=== PATIENT | male | born 1955 | race Caucasian/White ===

== ENCOUNTER 2025-07-15 09:37 | Outpatient (AMB) | payer OTHER, SELFPAY ==
--- OUTSIDE RECORDS SUMMARY | 2024-06-04 06:55 | XMS_ITS | Encounter Summary ---
Author Organization [facility] [place] [address] Care Team Providers Care Child Welfare Director Name Role Phone Anselmo Flower MD Primary Care Provider [phone] Encounter Details Date Type Department Care Team (Latest Contact Info) Description 06/04/2024 7:55 AM EDT Hospital Encounter TH HISTORIC ENCOUNTERS EASTERN CONVERSION ONLY Isabel Wynn MD [address] [place] [phone] Sacrococcygeal disorders, not elsewhere classified Social History Tobacco Use Types Packs/Day Years Used Date Smoking Tobacco: Never Smokeless Tobacco: Never Alcohol Use Standard Drinks/Week Comments Not Currently 0 (1 standard drink = 0.6 oz pur e alcohol) Interpersonal Safety Answer Date Record ed Physical Abuse Unrecognized value 05/30/2025 Verbal Abuse Unrecognized value 05/30/2025 Sex and Gender Information Value Date Recorded Sex Assigned at Male 09/21/2024 10:42 AM EST Legal Sex Male 9:43 PM EST Gender Identity Male 09/21/2024 10:42 AM EST Sexual Orientation Straight 09/21/2024 10 :42 AM EST documented as of this encounter Plan of Treatment Upcoming Encounters Date Type Department Care Team (Late st Contact Info) Description 07/25/2025 3:00 PM EST Office Visit [facility] Cardiology [facility] [address] [place] [phone] Dary Varner MD [address] [place] [address] [address] [place] [address] 08/01/2025 1:30 PM EST [facility] [place] [phone] Soham Sauceda PA [address] [place] [address] documented as of this encounter Procedures Procedure Name Priority Date/Time Associated Diagnosis Comments INJ ANES/STEROID SI JOINT LT Routine 06/04/2024 10:21 AM EDT Sacrococcygeal disorders, not elsewhere classified documented in this encounter Results * INJ ANES/STEROID SI JOINT LT (06/04/2024 10:21 AM EDT) Anatomical Region Laterality Modality Computed Tomogra phy 06/04/2024 8:35 AM EDT Narrative 06/04/2024 10:21 AM EDT [facility] Diagnostic Imaging Department [address] [place] [address] Patient: CHRIS SY /Age/Sex: 1955 - 68 - M Unit#: [id number] Location/Status: SPDIANGIO/REG CLI Mnemonic/Ordering Site: INJSIJTLT/SPIR Ordering Physician: ISABEL WYNN MD Inj Anes/Steroid SI Joint LT - 06/04/24 - 0956 Report Status:Signed INDICATION: Left buttock and thigh pain PROCEDURE: Left CT-guided SI joint injection under conscious sedation prior relevant studies: Outside CT scan of the abdomen and pelvis from November 15, 2023 MEDICATIONS: Local anesthesia: 5 cc of 1% buffered lidocaine administered subcutaneously. Sedation: None Other: 80 mg of Depot Medrol mixed with 2 mL of bupivacaine Scanner: [employer] speed 16 slice VCT Dose reduction technique: ASIR (Adaptive statistical iterative reconstruction) and/or AEC (automated exposure control) Dose: total exam DLP 2-3 mGY per cm TECHNIQUE: Informed consent obtained. Patient placed prone on the CAT scan table and multiple axial images obtained of the pelvis for localization. After localization the site was draped and prepped sterilely. Timeout performed followed by administration of local anesthetic. Under CT fluoroscopic guidance a 22-gauge needle was advanced into the posterior aspect of the inferior left SI joint. FINDINGS: Initial axial images obtained for localization. CT fluoroscopic images confirm needle positioning within the posterior aspect of the localized joint. IMPRESSION: Left-sided CT-guided SI joint injection. Dictating Physician: REBECCA ANAYA MD Electronically Signed by: REBECCA ANAYA MD Dic Date/Time: 06/04/24 1005 Sign date/Time: 06/04/24 1021 Procedure Note Rebecca Anaya MD - 06/12/2024 [facility] Diagnostic Imaging Department [address] [place] [address] Patient: KERRIECHRIS /Age/Sex: 1955 - 68 - M Unit#: [id number] Location/Status: RAQUELIANGIO/REG CLI Mnemonic/Ordering Site: [facility] Ordering Physician: ISABEL WYNN MD Inj Anes/Steroid SI Joint LT - 06/04/24 - 56 Report Status:Signed INDICATION: Left buttock and thigh pain PROCEDURE: Left CT-guided SI joint injection under conscious sedation prior relevant studies: [facility] MEDICATIONS: Local anesthesia: 5 cc of 1% buffered lidocaine administeredsubcutaneously. Sedation: None Other: 80 mg of Depot Medrol mixed with 2 mL of bupivacaine Scanner: [employer] speed 16 slice VCT Dose reduction technique: ASIR (Adaptive statistical iterativereconstruction) and/or AEC (automated exposure control) Dose: total exam DLP 2-3 mGY per cm TECHNIQUE: Informed consent obtained. Patient placed prone on the CATscan table and multiple axial images obtained of the pelvis for localization.After localization the site was draped and prepped sterilely. Timeoutperformed followed by administration of local anesthetic. Under CT fluoroscopicguidance a 22-gauge needle was advanced into the posterior aspect of the inferiorleft SI joint. FINDINGS: Initial axial images obtained for localization. CTfluoroscopic images confirm needle positioning within the posterior aspect of thelocalized joint. IMPRESSION: Left-sided CT-guided SI joint injection. Dictating Physician: REBECCA ANAYA MD Electronically Signed by: REBECCA ANAYA MD Dic Date/Time: 06/04/24 1005 Sign date/Time: 06/04/24 1021 Isabel Wynn MD IMG CT PROCEDURES Final Result documented in this encounter Visit Diagnoses Diagnosis Sacrococcygeal disorders, not elsewhere classified documented in this encounter Additional Health Concerns Infection Onset Date Last Indicated Resolved Time Respiratory Rule-Out 10/10/2024 10/10/2024 025 12:39 PM EST COVID-19 Rule-Out 10/10/2024 10/10/2024 10/10/2024 12:39 PM EST Coronavirus 10/10/2024 10/10/2024 documented as of this encounter Care Teams Child Welfare Director Relationship Specialty Start Date End Date Anselmo Flower MD PCP - General Internal Medicine 12/22/21 02/04/25 documented as of this encounter
--- NOTE | 2025-07-15 09:43 | A.PHYSOV ---
Vital Signs 07/15/25 09:45 Height 6 ft Weight 186 lb BMI 25.2 Intake Visit Reasons: Left shoulder injection Intake Note: Patient is a 62 year old female here for follow up Bilateral L4-L5, L5-S1 facet injections on 05/24/2025. Patient would like to have bilateral knee injections. Patient concerned with left hip pain. Airset Caster Required: No Allergies No Known Allergies Allergy (Verified 07/15/25 09:48) HPI Comments Details: Mr. Rod is a 70-year-old male seen in evaluation today for chief complaint of neck and left shoulder pain as well as left hip pain. Patient reports 7/10 pain to the left side neck. He has undergone left subacromial injection with good relief of his symptoms. Today he is requesting repeat injection. Patient also reports increasing pain without trauma. He completed a 6 week physician directed home exercise plan without relief of his symptoms. Patient is requesting MRI of the left shoulder. Patient is experiencing progressive weakness. Patient is also experiencing 7/10 left hip pain. He finds it difficult to cross his legs. He does have limited range of motion and external rotation. He is requesting imaging and intra-articular injection of his left hip. Procedure: Left subacromial injection 07/15/2025 Trigger point injection left upper trapezius 07/15/2025 [facility] Surgical History (Updated 07/15/25 @ 09:49 by Roopa Huang MA) History of lung surgery H/O shoulder surgery H/O: knee surgery History of carpal tunnel surgery Social History Alcohol intake: current Alcohol intake frequency: does not drink Patient Tobacco Use Status: Never used Tobacco Use of substances other than those prescribed or required for medical reasons: No Review of Systems Narrative Neck pain, left shoulder pain, left hip pain. No incontinence, saddle anesthesia urinary retention. Physical Exam Exam Exam: Cervical Spine: He is tender to left upper trapezius to palpation. He has limited range of motion of his cervical spine at end range throughout. Special Tests: Axial Compression test: Negative Spurlings test: Negative Lhermitte's sign is Negative Upper Extremities: He is tender to the lateral deltoid of the left shoulder. He has full range of motion of the shoulder in all planes with pain. He does have pain with Neer testing. He also has equivocal empty can test. Full range of motion of his elbow wrist and hand. Equal academic guidance specialist strength bilaterally. Neuro: Sensation: Intact to upper extremities bilateral to light touch Strength C5 (Elbow Flexion): 5/5 on the left and 5/5 on the right. C6 (Elbow Ext): 5/5 on the left and 5/5 on the right. C7 (Elbow Ext): 5/5 on the left and 5/5 on the right. C8 (Finger Flex): 5/5 on the left and 5/5 on the right. T1 (Finger Abd/Add): 5/5 on the left and 5/5 on the right. DTR: C5 (Biceps): Left 2 Right 2 C6 (Brachioradialis): Left 2 Right 2 C7 (Triceps): Left 2 Right 2 Aguillon sign: Negative No pathologic clonus. No involuntary movement. Examination of his left hip, he is limited in external rotation and abduction with pain. Full range of motion otherwise bilateral lower extremities. No calf pain or edema. He is otherwise neurovascularly intact. Vital Signs: BMI result Body Mass Index 25.2 Office Procedures AMB Shoulder Injection AMB Shoulder Injection Procedure Details: Left Subacromial injection Procedure: The patient was educated about risks, complications and benefits including but not limited to increased serum glucose, infection, nerve damage, bleeding, tendon/ligament damage and pain. We agree with a subacromial injection is the next best step in the treatment plan. Verbal consent was obtained. Using aseptic technique, the skin was cleansed with Betadine. Ethyl chloride was used to desensitize the skin. Using a posterior approach, 40 mg of Kenalog and 3 mL 2% lidocaine were injected using a 25-gauge inch and a half needle into the subacromial space. The patient tolerated the procedure well without immediate complication. Postinjection instructions were given. Shoulder Injection - : Left All charges added?: Procedure code (CPT) selection complete AMB Trigger Point Inject - Phy Therapeutic Injection Details: Trigger point injection left upper trapezius : Patient was educated about the risks, complications and benefits of trigger point injection. Risks and complications include infection, nerve damage, bleeding, collapsed lung. After discussing these risks complications and benefits the patient is eager to proceed. The patient's left upper trapezius muscle spasm was marked cleansed with an alcohol prep. 1 mL of 1% lidocaine was injected into the trigger point with needling. Patient tolerated the procedure well without immediate complication. 83625-Tawijkn Point Injection 1 or 2 sites All charges added?: Procedure code (CPT) selection complete Office Meds Kenalog 40 mg/mL suspension for injection Performing Provider: ZAK Chavez [facility] Administered by: ZAK Chavez on 07/15/25 16:31 Dose Route Admin Location Dispensed Lot Number Expiration Date [facility] [employer] 40 mg intra-articular 1 mL [address]-8 [employer] Total Dispensed Waste 1 mL 0 % lidocaine (PF) 20 mg/mL (2 %) injection solution Performing Provider: ZAK Chavez Performing Location: [facility] Administered by: ZAK Chavez on 07/15/25 16:31 Dose Route Admin Location Dispensed Lot Number Expiration Date [facility] [employer] Officer 60 mg intra-articular 50 mL [id number] Total Dispensed Waste 50 mL 0 % lidocaine (PF) 20 mg/mL (2 %) injection solution Performing Provider: ZAK Chavez Performing Location: [facility] Administered by: ZAK Chavez on 07/15/25 16:31 Dose Route Admin Location Dispensed Lot Number Expiration Date [facility] [employer] 10 mg IM 50 mL [id number] Total Dispensed Waste 50 mL 0 % Assessment & Plan Assessment & Plan (1) Osteoarthritis of left hip: Code(s): M16.12 - Unilateral primary osteoarthritis, left hip Category: Medical Qualifiers: Osteoarthritis type: primary Qualified Code(s): M16.12 - Unilateral primary osteoarthritis, left hip (2) Myalgia: Code(s): M79.10 - Myalgia, unspecified site Category: Medical (3) Rotator cuff tear: Code(s): M75.100 - Unspecified rotator cuff tear or rupture of unspecified shoulder, not specified as traumatic Category: Medical Qualifiers: Rotator cuff tear extent: complete Rotator cuff tear trauma status: nontraumatic Laterality: left Qualified Code(s): M75.122 - Complete rotator cuff tear or rupture of left shoulder, not specified as traumatic (4) Cervicalgia: Code(s): M54.2 - Cervicalgia Category: Medical Plan Mr. Rod is a 70-year-old male seen in evaluation today for chronic left-sided neck and shoulder pain. Patient reports worsening symptoms including weakness involved with his left shoulder as well as pain. Patient has failed conservative treatment. I recommend arthrogram of the left shoulder to rule out rotator cuff tear as well as labral tear. As we are considering surgery. Follow-up post arthrogram. Today consented to subacromial injection. He is given post-injection instructions, recommend: Moist heat compresses for 15 minutes 5 times daily. He should avoid repetitive overhead activities. Patient is experiencing left hip osteoarthritis. I recommend x-ray of the left hip today as well as intra-articular injection. We will obtain prior authorization for his injection contact him once we have done so. Today also consented to trigger point injection left upper trapezius. We discussed the benefits of proper nutrition and exercise to maintain a healthy body weight to improve longevity and function. We also discussed the benefits of proper lifting techniques, core strengthening and proper posture. Thank you for allowing me to participate in the care of your patient. Orders: Orders XR hip LT min 2V Today M16.10 - Unilateral primary osteoarthritis, unspecified hip AMB Shoulder Injection Today M16.12 - Unilateral primary osteoarthritis, left hip AMB Trigger Point Injection - Physiatry Today M79.10 - Myalgia, unspecified site FL arthrogram shoulder LT Today M75.122 - Complete rotator cuff tear or rupture of left shoulder, not specified as traumatic Coding Level of Care Code Tele Est Pt Level 4 (58440) Diagnoses Primary osteoarthritis of left hip M16.12 Osteoarthritis type: primary Myalgia M79.10 Nontraumatic complete tear of left rotator cuff M75.122 Rotator cuff tear extent: complete Rotator cuff tear trauma status: nontraumatic Laterality: left Cervicalgia M54.2 CPT Codes AMB Shoulder Injection - Hip/Bursa Injection - : Left ([id number]) Therapeutic Injection - Ther Injection 1: 16506-Myrixop Point Injection 1 or 2 sites ([id number])
[2025-07-15 09:45] VITALS: BMI 25.2
--- OUTSIDE RECORDS SUMMARY | 2025-07-15 10:49 | XMS_ITS | Encounter Summary ---
Author Organization [facility] [place] [address] Care Team Providers Care Health Systems Analyst Name Role Phone Carin Flannery NP Primary Care Provider [phone] Encounter Details Date Type Department Care Team (Latest Contact Info) Description 07/15/2025 10:49 AM EST Hospital Encounter [facility] - [facility] [address] [place] [phone] Unilateral primary osteoarthritis, unspecified hip Social History Tobacco Use Types Packs/Day Years [...] Description 07/25/2025 3:00 PM EST Office Visit [facility] [address] [place] [phone] Dary Varner MD [facility] [address] [place] [phone] 08/01/2025 1:30 PM EST Office Visit [facility] - [facility] [address] [facility] [place] [phone] Soham Sauceda PA [address] [facility] [place] [address] Pending Results Name Type Priority Associated Diagnoses Date /Time XR Hip 2-3 Views Left Imaging Routine Unilateral primary osteoarthritis, unspecified hip 07/15/2025 11:12 AM EST Scheduled Orders Name Type Priority Associated Diagnoses Orde r Schedule XR Hip 2-3 Views Left Imaging Routine Unilateral primary osteoarthritis, unspecified hip Once for 1 Occurrences starting 07/15/2025 until 07/15/2025 documented as of this encounter Goals Goal Patient Goal Type Associated Problems Recent Progress Patient-Stated? Author Autogenerat ed Goal Care Plan Autogenerated Problem No Jorden Choi documented as of this encounter Visit Diagnoses Diagnosis Unilateral primary osteoarthritis, unspecified hip documented in this encounter Additional Health Concerns Active Problems Noted Date Diagnosed Date Autogenerated Problem 05/13/2025 Infection Onset Date Last Indicated Resolved Time Coronavirus 10/10/2024 10/10/2024 documented as of this encounter Care Teams Health Systems Analyst Relationship Specialty Start Date End Date Carin Flannery NP [address] [facility] [place] [address] PCP - General Primary Care 05/27/25 documented as of this encounter
--- OUTSIDE RECORDS SUMMARY | 2025-07-15 11:24 | XMS_ITS | Encounter Summary ---
Author Organization [facility] Address [address] [place] [address] Care Team Providers Care Pipe Smoking Machine Operator Name Role Phone Prudencio Carin MCGRAW Primary Care Provider [phone] Encounter Details Date Type Department Care Team (Late Contact Info) Description 03/19/2025 Lab Requisition [facility] - Main Lab [address] [facility] [place] [address] Andrew Cohen MD [address] [facility] [address] [place] [phone] Malignant neoplasm of prostate ([facility]/HCC V24, CMS/HCC V28) Social History Tobacco Use Types Packs/Day Years Used Date Smoking Tobacco: Never Smokeless Tobacco: Never Alcohol Use Standard Drinks/Week Comments Not Currently 0 (1 standard drink = 0.6 oz pur e alcohol) Sex and Gender Information Value Date Recorded Sex Assigned at Male 09/21/2024 10:42 AM EST Legal Sex Male 9:43 PM EST Gender Identity Male 09/21/2024 10:42 AM EST Sexual Orientation Straight 09/21/2024 10 :42 AM EST documented as of this encounter Plan of Treatment Upcoming Encounters Date Type Department Care Team (Late Contact Info) Description 07/25/2025 3:00 PM EST Office Visit [facility] [address] [place] [phone] Dary Varner MD [address] [place] [address] [address] [place] [phone] 08/01/2025 1:30 PM EST [facility] [address] [place], [place] [phone] Soham Sauceda PA [address] [place] [address] documented as of this encounter Procedures Procedure Name Priority Date/Time Associated Diagnosis Comments TISSUE EXAM Routine 03/18/2025 Malignant neoplasm of prostate ([facility]/HCC V24, CMS/HCC V28) documented in this encounter Results * Tissue Exam (03/18/2025) Final Diagnosis A. Prostate, Left [place] (Core Biopsy): - BENIGN PROSTATE TISSUE. B. Prostate, Left Lateral [place] (Core Biopsy): - BENIGN PROSTATE TISSUE. C. Prostate, Left Middle Middle (Core Biopsy): -PROSTATIC ACINAR ADENOCARCINOMA, CONVENTIONAL (USUAL) TYPE -Antonella score (3+3)=6, Grade group 1 Total Number of Cores: 1 Number of Positive Cores: 1 Percentage of Prostatic Tissue Continuously Involved by Tumor: 10% D. Prostate, Left Lateral Middle (Core Biopsy): -PROSTATIC ACINAR ADENOCARCINOMA, CONVENTIONAL (USUAL) TYPE -[place] score (3+3)=6, Grade group 1 Total Number of Cores: 1 Number of Positive Cores: 1 Percentage of Prostatic Tissue Continuously Involved by Tumor: 5% E. Prostate, Left Middle Base (Core Biopsy): -PROSTATIC ACINAR ADENOCARCINOMA, CONVENTIONAL (USUAL) TYPE -[place] score (3+3)=6, Grade group 1 Total Number of Cores: 1 Number of Positive Cores: 1 Percentage of Prostatic Tissue Continuously Involved by Tumor: 40% F. Prostate, Left Lateral Base (Core Biopsy): -PROSTATIC ACINAR ADENOCARCINOMA, CONVENTIONAL (USUAL) TYPE -Antonella score (3+3)=6, Grade group 1 Total Number of Cores: 2 Number of Positive Cores: 2 Percentage of Prostatic Tissue Continuously Involved by Tumor: <5, 5% G. Prostate, Right [place] (Core Biopsy): -PROSTATIC ACINAR ADENOCARCINOMA, CONVENTIONAL (USUAL) TYPE -[place] score (3+3)=6, Grade group 1 Total Number of Cores: 1 Number of Positive Cores: 1 Percentage of Prostatic Tissue Continuously Involved by Tumor: 10% H. Prostate, Right Lateral [place] (Core Biopsy): - BENIGN PROSTATE TISSUE. I. Prostate, Right Middle Middle (Core Biopsy): -PROSTATIC ACINAR ADENOCARCINOMA, CONVENTIONAL (USUAL) TYPE -Antonella score (3+3)=6, Grade group 1 Total Number of Cores: 1 Number of Positive Cores: 1 Percentage of Prostatic Tissue Discontinuously Involved by Tumor: 20% J. Prostate, Right Lateral Middle (Core Biopsy): -PROSTATIC ACINAR ADENOCARCINOMA, CONVENTIONAL (USUAL) TYPE -[place] score (3+3)=6, Grade group 1 Total Number of Cores: 1 Number of Positive Cores: 1 Percentage of Prostatic Tissue Continuously Involved by Tumor: 5% K. Prostate, Right Middle Base (Core Biopsy): - BENIGN PROSTATE TISSUE. L. Prostate, Right Lateral Base (Core Biopsy): - BENIGN PROSTATE TISSUE. M. Prostate, Right Peripheral Zone Lesion (Core Biopsy) -PROSTATIC ACINAR ADENOCARCINOMA, CONVENTIONAL (USUAL) TYPE -[place] score (3+3)=6, Grade group 1 Total Number of Cores: 3 Number of Positive Cores: 3 Percentage of Prostatic Tissue Continuously Involved by Tumor: 5, 10, 30% N. Prostate, Paramedian Peripheral Zone Lesion (Core Biopsy): -PROSTATIC ACINAR ADENOCARCINOMA, CONVENTIONAL (USUAL) TYPE -[place] score (3+3)=6, Grade group 1 Total Number of Cores: 3 Number of Positive Cores: 3 Percentage of Prostatic Tissue Continuously Involved by Tumor: 5, 15, 20% 03/27/2025 9:42 AM T [facility] at 0942 EDT Clinical Information Prostate Cancer PSA: 7.14 (08/13/24) [id number] 03/27/2025 9:42 AM T [facility] Gross Description A. Prostate, Left Mid [place] Biopsy: Received, properly labeled, are two H and E stained slides and two unstained slides. B. Prostate, Left Lat [place] Biopsy: Received, properly labeled, are two H and E stained slides and two unstained slides. C. Prostate, Left Mid Mid Biopsy: Received, properly labeled, are two H and E stained slides and two unstained slides. D. Prostate, Left Lat Mid Biopsy: Received, properly labeled, are two H and E stained slides and two unstained slides. E. Prostate, Left Mid Base Biopsy: Received, properly labeled, are two H and E stained slides and two unstained slides. F. Prostate, Left Lat Base Biopsy: Received, properly labeled, are two H and E stained slides and two unstained slides. G. Prostate, Right Mid [place] Biopsy: Received, properly labeled, are two H and E stained slides and two unstained slides. H. Prostate, Right Lat [place] Biopsy: Received, properly labeled, are two H and E stained slides and two unstained slides. I. Prostate, Right Mid Mid Biopsy: Received, properly labeled, are two H and E stained slides and two unstained slides. J. Prostate, Right Lat Mid Biopsy: Received, properly labeled, are two H and E stained slides and two unstained slides. K. Prostate, Right Mid Base Biopsy: Received, properly labeled, are two H and E stained slides and two unstained slides. L. Prostate, Right Lat Base Biopsy: Received, properly labeled, are two H and E stained slides and two unstained slides. M. Prostate, Right Peripheral Zone Lesion Biopsy: Received, properly labeled, are two H and E stained slides and two unstained slides. N. Prostate, Paramedian Peripheral Zone Lesion Biopsy: Received, properly labeled, are two H and E stained slides and two unstained slides. /al 03/27/2025 9:42 AM EDT [facility] Disclaimer Unless otherwise specified, all tissue is 10% NB formalin fixed and paraffin embedded. Technical pathology services provided by [facility] at [address] [place] [address] [address], [place] [address] (CLIA #[id number]/Christiane Francis MD, Reptile Farmer) 03/27/2025 9:42 AM EDT [facility] Tissue Prostate / Unknown 03/18/20252024 10:39 AM EDT Tissue specimen (specimen) Prostate / Unknown 03/18/2025 03/19/2025 10 :44 AM EDT Tissue specimen (specimen) Prostate / Unknown 03/18/2025 03/19/2025 10 :44 AM EDT Tissue specimen (specimen) Prostate / Unknown 03/18/2025 03/19/2025 10 :44 AM EDT Tissue specimen (specimen) Prostate / Unknown 03/18/2025 03/19/2025 10 :44 AM EDT Tissue specimen (specimen) Prostate / Unknown 03/18/2025 03/19/2025 10 :44 AM EDT Tissue specimen (specimen) Prostate / Unknown 03/18/2025 03/19/2025 10 :44 AM EDT Tissue specimen (specimen) Prostate / Unknown 03/18/2025 03/19/2025 10 :44 AM EDT Tissue specimen (specimen) Prostate / Unknown 03/18/2025 03/19/2025 10 :44 AM EDT Tissue specimen (specimen) Prostate / Unknown 03/18/2025 03/19/2025 10 :44 AM EDT Tissue specimen (specimen) Prostate / Unknown 03/18/2025 03/19/2025 10 :44 AM EDT Tissue specimen (specimen) Prostate / Unknown 03/18/2025 03/19/2025 10 :44 AM EDT Tissue specimen (specimen) Prostate / Unknown 03/18/2025 03/19/2025 10 :44 AM EDT Tissue specimen (specimen) Prostate / Unknown 03/18/2025 03/19/2025 10 :44 AM EDT Andrew Cohen MD LAB PATHOLOGY ORDERABLES Final Result [facility] ([facility]) [facility] [address] [place] [address], documented in this encounter Visit Diagnoses Diagnosis Malignant neoplasm of prostate (CMS/HCC V24, CMS/HCC V28) Malignant neoplasm of prostate documented in this encounter Additional Health Concerns Infection Onset Date Last Indicated Resolved Time Coronavirus 10/10/2024 10/10/2024 documented as of this encounter Care Teams Pipe Smoking Machine Operator Relationship Specialty Start Date End Date Carin Flannery NP [address] [place] [address] PCP - General Primary Care 05/27/25 documented as of this encounter
--- OUTSIDE RECORDS SUMMARY | 2025-07-15 11:24 | XMS_ITS | Encounter Summary ---
Author Organization [facility] Address [address] [place] [address] Care Team Providers Care Cyber Security Engineer Name Role Phone Carin Flannery NP Primary Care Provider [phone] Encounter Details Date Type Department Care Team ([facility] Contact Info) Description 07/10/2025 Telephone Orthopedic Surgery - [place] [address] [address] Aidan Estrada MD [address] [place] [address] Social History Tobacco Use Types Packs/Day Years [...] AM EST documented as of this encounter Progress Notes * Edna Truman - 07/10/2025 9:46 AM EST Pt call to schedule his surgery. He stated he was schedule at [facility] but cancelled. He also stated only his right ring finger is an issue his middle finger is ok. Will send a message to Dr. Estrada making him aware of those changes before R/ S this pt case. documented in this encounter Plan of Treatment Upcoming Encounters Date Type Department Care Team (Late st Contact Info) Description 07/25/2025 3:00 PM EST Office Visit [facility] [address] [place] [address] Dary Varner MD [address] [place] [address] [address] [place] [phone] 08/01/2025 1:30 PM EST Office Visit Internal Medicine - [facility] [address] [place] [phone] Soham Sauceda PA [address] [place] [address] documented as of this encounter Goals Goal Patient Goal Type Associated Problems Recent Progress Patient-Stated? Author Autogenerat ed Goal Care Plan Autogenerated Problem No Jorden Choi documented as of this encounter Visit Diagnoses Not on filedocumented in this encounter Additional Health Concerns Active Problems Noted Date Diagnosed Date Autogenerated Problem 05/13/2025 Infection Onset Date Last Indicated Resolved Time Coronavirus 10/10/2024 10/10/2024 documented as of this encounter Care Teams Cyber Security Engineer Relationship Specialty Start Date End Date Carin Flannery NP [address] [place] [address] PCP - General Primary Care 05/27/25 documented as of this encounter
--- OUTSIDE RECORDS SUMMARY | 2025-07-15 11:24 | XMS_ITS | Encounter Summary ---
Author Organization [facility] Address [address] [place] [address] Care Team Providers Care Weeder Thinner Name Role Phone Carin Flannery NP Primary Care Provider [phone] Encounter Details Date Type Department Care Team (Late Contact Info) Description 05/30/2025 Results Follow-Up Internal Medicine - [address] [place] [phone] Kinza Jauregui [place] Social History Tobacco Use Types Packs/Day Years [...] Description 07/25/2025 3:00 PM EST Office Visit [facility] [address] [place] [phone] Dary Varner MD [address] [place] [address] [address] [place] [phone] 08/01/2025 1:30 PM EST Office Visit [facility] - [facility] [address] [facility] [place] [phone] Soham Sauceda PA [address] [facility] [place] [address] documented as of this encounter Goals Goal [...] documented as of this encounter Care Teams Weeder Thinner Relationship Specialty Start Date End Date Carin Flannery NP [address] [facility] [place] [address] PCP - General Primary Care 05/27/25 documented as of this encounter
--- OUTSIDE RECORDS SUMMARY | 2025-07-15 11:24 | XMS_ITS ---
Author Name [facility] Organization Unknown Care Team Organization Name Specialty Phone Email Start Date End Da te [facility] Esther Grayson ASPHALT STILL OPERATOR Primary Care 02/17/2023 04/02/2024 [facility] NULL Primary Care 10/20/2022 04/02/2024 [facility] NULL Primary Care 06/22/2022 04/02/2024
--- OUTSIDE RECORDS SUMMARY | 2025-07-15 11:24 | XMS_ITS | Encounter Summary ---
Author Organization [facility] Address [address] [place] [address] Care Team Providers Care Manager Communication Name Role Phone Carin Flannery NP Primary Care Provider [phone] Encounter Details Date Type Department Care Team (Late st Contact Info) Description 06/03/2025 Results Follow-Up Gastroenterology - [address] [place] [phone] Suzy Moses [place] Social History Tobacco Use Types Packs/Day [...] Description 07/25/2025 3:00 PM EST Office Visit [facility] [address] [place] [phone] Dary Varner MD [address] [place] [phone] 08/01/2025 1:30 PM EST Office Visit [facility] - [facility] [address] [facility] [place] [place] [phone] Soham Sauceda PA [address] [place] [address] documented as of this encounter Goals Goal [...] documented as of this encounter Care Teams Manager Communication Relationship Specialty Start Date End Date Carin Flannery NP [address] [place] [address] PCP - General Primary Care 05/27/25 documented as of this encounter
--- OUTSIDE RECORDS SUMMARY | 2025-07-15 11:24 | XMS_ITS | Clinical Summary ---
Author Organization [address] Address [address] [place] [phone] Phone Care Team Providers [facility] Manager Name Role Phone Carin Flannery NP Primary Care Provider [phone] Allergies No known active allergies Medications atorvastatin (LIPITOR) 20 mg tablet Take 1 tablet (20 mg total) by mouth at bedtime. 4 Active tadalafiL (CIALIS) 5 mg tablet Take 1 tablet (5 mg total) by mouth 1 (one) time each day if needed. Active fluticasone propionate (FLONASE) 50 mcg/actuation nasal spray Administer 1 spray into each nostril 2 (two) times a day. Shake gently. Before first use, prime pump. After use, clean tip and replace cap. 16 g 5 Active Additional Information Patient not taking.Reported on 04/18/2025 cetirizine (ZyrTEC) 10 mg tablet Take 1 tablet (10 mg total) by mouth 1 (one) time each day. 30 each 5 5 Active predniSONE (DELTASONE) 10 mg tablet Take 4 tablets for 2 days then Take 3 tablets for 2 days then 2 tablets for 2 days and then 1 tablet for 2 days 20 tablet 5 Active Additional Information Patient not taking.Reported on 04/18/2025 tamsulosin (FLOMAX) 0.4 mg 24 hr capsule TAKE 1 CAPSULE (0.4 MG TOTAL) BY MOUTH 1 (ONE) TIME EACH DAY. TAKE 30 MINS AFTER SAME MEAL EVERY DAY 90 capsule 1 5 Active omeprazole (PriLOSEC) [address] capsule TAKE 1 CAPSULE BY MOUTH 1 TIME EACH DAY. 90 capsule 1 5 Active bisacodyL (DULCOLAX) 5 mg EC tablet Take 2 tablets by mouth right before beginning bowel prep. See instructions provided by the office 2 tablet 5 Active polyethylene glycol (Golytely) 236-22.74-6.74 -5.86 gram solution Take 4L by mouth once for one dose. May substitue any PEG. Starting at 2PM the day before your procedure drink 1 8oz glasses at your own pace until you complete half of the gallon. Finish 2nd half of the gallon at 8PM. 4000 mL 5 Active aspirin 81 mg EC tablet Take 1 tablet (81 mg total) by mouth 1 (one) time each day. Active polyethylene glycol (Golytely) 236-22.74-6.74 -5.86 gram solution Take 4L by mouth once for one dose. May substitue any PEG. Starting at 2PM the day before your procedure drink 1 8oz glasses at your own pace until you complete half of the gallon. Finish 2nd half of the gallon at 8PM. 4000 mL 5 Active bisacodyL (DULCOLAX) 5 mg EC tablet Take 2 tablets by mouth right before beginning bowel prep. See instructions provided by the office 2 tablet 5 Active dilTIAZem CD (CARDIZEM CD) 180 mg 24 hr capsule Take 1 capsule (180 mg total) by mouth 1 (one) time each day. 90 capsule 1 5 Active sertraline (ZOLOFT) 25 mg tablet Take 1 tablet (25 mg total) by mouth 1 (one) time each day. 90 tablet 1 5 Active sertraline (ZOLOFT) 25 mg tablet TAKE 1 TABLET BY MOUTH 1 TIME EACH DAY. 90 tablet 1 5 025 Discontin ued(Reord er) Active Problems Problem Noted Date Diagnosed Date Prostate cancer ([facility] V24, [facility] V28) 12/19 Assessment & Plan (12/19/2024 9:29 AM EDT): Patient is being monitored by urology for his prostate cancer. Up-to-date with follow-up. Tendinitis of left rotator cuff 07/19/2024 Acquired trigger finger of right middle finger 1 09/05/2023 Sacroiliitis (CMS/HCC V24) 05/12/2024 Carotid artery stenosis 05/12/2024 Prostate mass 08/03/2023 Overview (05/12/2024): MRI prostate (08/01/2023): 1. Suspicious 0.9 cm right posterior paramedian gland apex peripheral zone lesion and 0.5 cm right posterior medial mid gland apex peripheral zone lesion. Category 4 (clinically significant cancer is likely to be present). 2. No evidence of adenopathy, capsular or seminal vesicle invasion. No suspicious osseous lesion. 3. Benign prostatic hyperplasia. Follow-up appointment with urology on 08/19/2023 Elevated liver function tests 08/11/2022 Anxiety 10/17/2020 Hypertension 10/17/2020 Assessment & Plan (12/19/2024 9:29 AM EDT): Blood pressure on recheck was reassuring. Follow sodium diet. Continue current treatment of diltiazem. Cervical radiculopathy 02/11/2020 Assessment & Plan (12/19/2024 9:29 AM EDT): Stable. He does not want any intervention at this moment. Peroneal tendinitis of left lower extremity 01/14 Obstructive sleep apnea 10/02/2019 Overview (05/12/2024): - no longer on cpap (12/2023) after weight loss [facility] Home Sleep Apnea Test: Date 09/25/2019; Wt 181#; BMI 25; TR 12, AI 4; HI 8; Unclassified apneas 0; Obstructive apneas 13; Central apneas 0; Mixed apneas 0; hypopneas 23; average oxygen saturation 92% (lowest 74% with saturations <88% for 5% or more of study) - Obstructive Sleep Apnea - mild; mostly hypopneas with obstructive apneas; with sleep related hypoventilation by 2019 home sleep apnea test. Actinic keratoses 05/12/2017 Overview (05/12/2024): Actinic keratoses Hyperlipidemia 08/23/2016 Assessment & Plan (12/19/2024 9:29 AM EDT): Follow low-cholesterol diet. Continue current treatment of atorvastatin. Patient plans on reducing weight by exercise and dietary choices. He wants to eventually come off atorvastatin. Orders: Lipid panel with reflex to direct LDL; Future Comprehensive metabolic panel; Future Low libido 04/14/2015 Colon adenomas 05/08/2013 Overview (05/12/2024): Colon adenomas 11/28/12, repeat done 01/24/162018, repeat due 2023 Paroxysmal A-fib (CMS/HCC V24, CMS/HCC V28) 02/12 Overview (05/12/2024): converted in [facility] 07/15/12 w IV drug & spontaneously 02/24/13 (CHADS2=0), ETT nl 03/06/13. Then PAF again 12/05/2015 lasting ~8hrs converting after a single po metoprolol 50mg. Encounters Date Type Department Care Team Description 07/15/2025 10:49 AM EST Hospital Encounter [facility] - [facility] [address] [place] [address] Unilateral primary osteoarthritis, unspecified hip 07/10/2025 Telephone Orthopedic Surgery - [facility] [address] [facility] [address] [place] [phone] Aidan Estrada MD 06/03/2025 11:15 AM EDT Clinical Support Internal Medicine - [facility] [address] [place] [address] Immunization due (Primary Dx) 06/03/2025 Results Follow-Up Gastroenterology - [address] [facility] 299 [facility] [address] [place] [phone] Suzy Moses MA 05/30/2025 7:42 AM EDT Anesthesia Event [facility] [address] [place] [phone] Dell Hoffmann MD Sobo, Kathleen, CRNA 05/30/2025 7:03 AM EDT - 05/30/2025 11:59 PM EDT Hospital Encounter [facility] [address] [place] [phone] Sp Garcia MD Sobo, Kathleen, CRNA Colon cancer screening Discharge Disposition: Home or Self Care 05/30/2025 Results Follow-Up Internal Medicine - [facility] [address] [place] [address] Kinza Jauregui MA 05/29/2025 Telephone Orthopedic [facility] [address] [phone] Kelsey Layne MA 05/07/2025 10:30 AM EDT Office Visit Orthopedic [facility] [address] [phone] Aidan Estrada MD Left carpal tunnel syndrome (Primary Dx); Trigger finger, right ring finger; Acquired trigger finger of right middle finger 04/30/2025 11:30 AM EDT Office Visit [facility]opedic [facility] 160 175 [facility] [address] [place] [phone] Amy Springer MD Primary osteoarthritis of left knee (Primary Dx) 04/30/2025 Telephone Orthopedic [facility] [address] [phone] Carissa Thorne MA 04/30/2025 Telephone Orthopedic [facility] [address] [phone] Carissa Thorne MA 04/18/2025 1:15 PM EDT Office Visit [facility] [address] [phone] Aidan Estrada MD Acquired trigger finger of right middle finger (Primary Dx); Trigger ring finger of right hand; Finger mass, right from Last 3 Months Immunizations Immunization Administration Dates Next Due Influenza Quadravalent, MDCK , 0.5ml, preservative free (Flucelvax) 6mo and older 06/08/2022,06/08/2021,05/27/2020,2017 Influenza Quadravalent, MDCK , 0.5ml, with preservative (Flucelvax) 6mo and older 06/08/2017 Influenza trivalent, 0.5mL ( Fluad) 65yo and older 06/03/2025,06/19/2024 Influenza trivalent, with preservative (Fluzone; Afluria) 6mo and older 05/24/2019,06/04/2016,05/28/2015,2013,05/31/2013,06/15/2010,05/15/2008 Influenza, Unspecified 06/07/2023 Moderna Covid-19 Bivalent, O riginal + Ba.1 (Non-US Tradename Spikevax Bivalent) 05/06/2022 Moderna SARS-CoV-2 COVID-19, mRNA, LNP-S, preservative free 06/11/2021 Pneumococcal conjugate 20 va lent (Prevnar 20, PCV 20) 2mo and older 12/01/2022 Td Tetanus diptheria (Tdvax) 7yo and older 03/15/2016,02/28/2012 Tdap Tetanus diptheria acell ular pertussis (Boostrix; Adacel) 7yo and older 12/07/2021,11/23/2006 Surgical History Surgery Date Site/Laterality Comments KNEE ARTHROSCOPY W/ MENISCAL REPAIR 03/21/2012 Left PROCEDURE: DE ARTHROSCOPY KNEE W/MENISCUS RPR MEDIAL/LATERAL; COMMENT: Dr Saucedo at [facility] COLONOSCOPY 11/28/2012 PROCEDURE: HISTORICAL COLONOSCOPY; COMMENT: adenomas and tics; repeat in 3 yrs COLONOSCOPY 02/23/2016 PROCEDURE: DE COLONOSCOPY STOMA W/RMVL STEVEN POLYP/OTH LES SNARE; COMMENT: serrated polyp/adenoma and tics; repeat in 3 yrs MOLE REMOVAL PROCEDURE: HISTORICAL MOLE (REMOVAL OF) OTHER SURGICAL HISTORY PROCEDURE: HISTORICAL MELANOMA OTHER SURGICAL HISTORY 11/29/2018 Left PROCEDURE: DE THORACOTOMY W/DX WEDGE RESEXN & ANTOM LUNG RESE; COMMENT: granuloma, no CA: VATS LLL resection, lymphadenectomy Dr Rousou ROTATOR CUFF REPAIR 08/15/2018 - 08/14/2019 Right Medical History Medical History Date Comments Historical Medical DX 03/01/2008 DX:Basal c ell carcinoma of the skin Prostatitis 03/06/2009 DX:Prostatitis Paroxysmal A-fib (CMS/HCC V2 4, CMS/HCC V28) 02/26/2013 DX:Paroxysmal A-fib (HCC) Colon adenomas 05/08/2013 DX:Colon adenoma s History of dysplastic nevus 03/01/2008 DX:H istory of dysplastic nevus; COMMENT: Dysplastic nevus 03/21 back (mild atypia) History of basal cell carcinoma 03/01/2008 DX:History of basal cell carcinoma; COMMENT: BCC 03/21 right cheek (nodular) Actinic keratosis, hx of DX:Acti casey keratosis, hx of Elevated PSA 08/11/2022 DX:Elevated PSA Elevated liver function tests 08/11/2022 DX :Elevated liver function tests Prostate mass 08/03/2023 DX:Prostate mass Carotid artery stenosis 04/18/2024 DX:Carot id artery stenosis Prostate cancer (CMS/HCC V24 , CMS/HCC V28) 12/19/2024 Sleep apnea Social History Tobacco Use Types Packs/Day Years Used Date Smoking Tobacco: Never Smokeless Tobacco: Never Tobacco Cessation:Counseling Given: Not Answered Alcohol Use Standard Drinks/Week Comments Not Currently [...] Orientation Straight 09/21/2024 10 :42 AM EST Obstetrics History Last Filed Vital Signs Vital Sign Reading Time Taken Comments Blood Pressure 137/75 05/30/2025 8:24 AM EDT Pulse 54 05/30/2025 8:24 AM EDT Temperature 36.8 C (98.3 F) 05/30/2025 8:04 AM EDT Respiratory Rate 18 05/30/2025 8:24 AM EDT Oxygen Saturation 99% 05/30/2025 8:24 AM EDT Inhaled Oxygen Concentration - - Weight 83.9 kg (185 lb) 05/30/2025 7:21 AM EDT Height 182.9 cm (6') 05/30/2025 7:21 AM EDT Body Mass Index 25.09 05/30/2025 7:21 AM EDT Plan of Treatment Upcoming Encounters Date Type Department Care Team (Late st Contact Info) Description 07/25/2025 3:00 PM EST Office Visit [facility] [address] [place] [phone] Dary Varner MD [address] [place] [address] Dr [address] [place] [phone] 08/01/2025 1:30 PM EST Office Visit Internal Medicine - [facility] [address] [place] [phone] Soham Sauceda PA [address] [place] [address] Health Maintenance Due Date Last Done Comments Zoster Vaccines (1 of 2) 1976 Social Influencers of Health Screening 09/15/2019 Depression Screening 08/15/2024 COVID-19 Vaccine ( season) 2025 06/08/2024, 05/06/2022, 06/11/2021, Additional history exists Hypertension/CHF/CAD Annual BMP Blood Test 04/06/2026 04/06/2025, 02/15/2024, 02/15/2024 Falls Risk Assessment 05/30/2026 05/30/2025 Cholesterol Screening (Lipid Panel) 04/06/2030 04/06/2025, 09/20/2023 Colorectal Cancer Screening: Colonoscopy 05/30/2030 05/30/2025, 03/08/2019 DTaP,Tdap,and Td Vaccines (5 - Td or Tdap) 12/08/2031 12/07/2021, 03/15/2016, 02/28/2012, Additional history exists RSV Immunization Adult Patients (1 - 1-dose 75+ series) 2032 Hepatitis C Screening Completed 08/20/2016 Pneumococcal Vaccine: 50+ Years Completed 12/01/2022 Influenza Vaccine Completed 06/03/2025, , 06/07/2023, Additional history exists HIB Vaccines Aged Out No longer eligi ble based on patient's age to complete this topic HPV Vaccines Aged Out No longer eligi ble based on patient's age to complete this topic Hepatitis A Vaccines Aged Out No long er eligible based on patient's age to complete this topic Hepatitis B Vaccines Aged Out No long er eligible based on patient's age to complete this topic IPV Vaccines Aged Out No longer eligi ble based on patient's age to complete this topic MMR Vaccines Aged Out No longer eligi ble based on patient's age to complete this topic Meningococcal ACWY Vaccine Aged Out N o longer eligible based on patient's age to complete this topic Meningococcal B Vaccine Aged Out No l onger eligible based on patient's age to complete this topic RSV Immunization Patients Under 20 months Aged Out No longer eligible based on patient's age to complete this topic Varicella Vaccines Aged Out No longer eligible based on patient's age to complete this topic Goals Goal Patient Goal Type Associated Problems Recent Progress Patient-Stated? Author Autogenerat ed Goal Care Plan Autogenerated Problem No Jorden Choi Procedures Procedure Name Priority Date/Time Associated Diagnosis Comments COLONOSCOPY Routine 05/30/2025 8:03 AM EDT Colon cancer screening TISSUE EXAM STAT 05/30/2025 7:56 AM EDT Colon cancer screening DE INJECTION CARPAL TUNNEL THERAPEUTIC Routine 05/07/2025 10:30 AM EDT Left carpal tunnel syndrome COMPREHENSIVE METABOLIC PANEL Routine 04/06/2025 8:40 AM EDT Hyperlipidemia, unspecified hyperlipidemia type LIPID PANEL WITH REFLEX TO DIRECT LDL Routine 04/06/2025 8:40 AM EDT Hyperlipidemia, unspecified hyperlipidemia type HM HEPATITIS C SCREENING Routine 08/20/2016 from Last 3 Months or Most Recently Relevant to Health Maintenance Results * COLONOSCOPY Anesthesia - MAC; [facility] ENDOSCOPY (05/30/2025 8:03 AM EDT) Anatomical Region Laterality Modality Endoscopy 05/30/2025 7:41 AM EDT Impressions 05/30/2025 8:07 AM EDT - One 4 mm polyp in the cecum, removed with a cold snare. Resected and retrieved. - One 4 mm polyp in the proximal ascending colon, removed with a cold snare. Resected and retrieved. - Diverticulosis in the sigmoid colon. - Non-bleeding internal hemorrhoids. - The examination was otherwise normal on direct and retroflexion views. Recommendation: - Discharge patient to home. - High fiber diet. - Continue present medications. - Await pathology results. - Repeat colonoscopy for surveillance based on pathology results. - Return to GI office PRN. Narrative 05/30/2025 8:07 AM EDT [facility] GI Patient Name: Ike Rod Procedure Date: 05/30/2025 7:41 AM Date of : 1955 Age: 69 Room: ROOM 17 Gender: Male Note Status: Finalized Attending MD: Sp Garcia MD, Procedure Date No Time: 05/30/2025 Procedure: Colonoscopy Indications: High risk colon cancer surveillance: Personal history of colonic polyps Providers: Sp Garcia MD Referring MD: Jonas Gonzalez MD Medicines: Monitored Anesthesia Care Complications: No immediate complications. Estimated Blood Loss: Estimated blood loss: none. Procedure: Pre-Anesthesia Assessment: - ASA Grade Assessment: II - A patient with mild systemic disease. - After reviewing the risks and benefits, the patient was deemed in satisfactory condition to undergo the procedure. After I obtained informed consent, the scope was passed under direct vision. Throughout the procedure, the patient's blood pressure, pulse, and oxygen saturations were monitored continuously.The Colonoscope was introduced through the anus and advanced to the cecum, identified by appendiceal orifice and ileocecal valve. The colonoscopy was performed without difficulty. The patient tolerated the procedure well. The quality of the bowel preparation was good. Findings: A 4 mm polyp was found in the cecum. The polyp was sessile. The polyp was removed with a cold snare. Resection and retrieval were complete. Estimated blood loss was minimal. A 4 mm polyp was found in the proximal ascending colon. The polyp was sessile. The polyp was removed with a cold snare. Resection and retrieval were complete. Estimated blood loss was minimal. Scattered small and large-mouthed diverticula were found in the sigmoid colon. Non-bleeding internal hemorrhoids were found during retroflexion. The hemorrhoids were medium-sized. The exam was otherwise without abnormality on direct and retroflexion views. Procedure Code(s): --- Professional --- 06769, Colonoscopy, flexible; with removal of tumor(s), polyp(s), or other lesion(s) by snare technique Diagnosis Code(s): --- Professional --- Z86.010, Personal history of colonic polyps D12.0, Benign neoplasm of cecum CPT copyright 2020 [employer]. All rights reserved. The codes documented in this report are preliminary and upon light out examiner review may be revised to meet current compliance requirements. Sp Garcia MD 05/30/2025 8:07:24 AM This report has been signed electronically.Sp Garcia MD Number of Addenda: 0 Note Initiated On: 05/30/2025 7:41 AM Scope In: Scope Out: Endoscopy Department at [facility] - [address] [place] [phone] Procedure Note Sp Garcia MD - 05/30/2025 [facility] GI Patient Name: Ike Rod Procedure Date: 05/30/2025 7:41 AM Date of : 1955 Age: 69 Room: ROOM 17 Gender: Male Note Status: Finalized Attending MD: Sp Garcia MD, Procedure Date No Time: 05/30/2025 Procedure: Colonoscopy Indications: High risk colon cancer surveillance: Personalhistory of colonic polyps Providers: Sp Garcia MD Referring MD: Jonas Gonzalez MD Medicines: Monitored Anesthesia Care Complications: No immediate complications. Estimated Blood Loss: Estimated blood loss: none. Procedure: Pre-Anesthesia Assessment: - ASA Grade Assessment: II - A patient with mild systemic disease. - After reviewing the risks and benefits, thepatient was deemed in satisfactory condition to undergo the procedure. After I obtained informed consent, the scope was passed under direct vision. Throughout theprocedure, the patient's blood pressure, pulse, and oxygen saturations were monitored continuously.The Colonoscope was introduced through the anus and advanced to the cecum, identified by appendiceal orifice and ileocecal valve. The colonoscopy was performed without difficulty. The patient tolerated the procedure well. The quality of the bowel preparation was good. Findings: A 4 mm polyp was found in the cecum. The polyp was sessile. The polyp was removed with a cold snare. Resection and retrieval were complete. Estimatedblood loss was minimal. A 4 mm polyp was found in the proximal ascending colon. The polyp was sessile. The polyp was removed with a cold snare. Resection and retrieval were complete. Estimated blood loss was minimal. Scattered small and large-mouthed diverticula were found in the sigmoid colon. Non-bleeding internal hemorrhoids were found during retroflexion. The hemorrhoids were medium-sized. The exam was otherwise without abnormality ondirect and retroflexion views. Procedure Code(s): --- Professional --- 37587, Colonoscopy, flexible; with removal of tumor(s), polyp(s), or other lesion(s) by snare technique Diagnosis Code(s): --- Professional --- Z86.010, Personal history of colonic polyps D12.0, Benign neoplasm of cecum CPT copyright 2020 [employer]. All rights reserved. The codes documented in this report are preliminary and upon light out examiner reviewmay be revised to meet current compliance requirements. Sp Garcia MD 05/30/2025 8:07:24 AM This report has been signed electronically.Sp Garcia MD Number of Addenda: 0 Note Initiated On: 05/30/2025 7:41 AM Scope In: Scope Out: Endoscopy Department at [facility] - [address] [place] [phone] IMPRESSION: - One 4 mm polyp in the cecum, removed with a cold snare. Resected and retrieved. - One 4 mm polyp in the proximal ascending colon, removed with a cold snare. Resected andretrieved. - Diverticulosis in the sigmoid colon. - Non-bleeding internal hemorrhoids. - The examination was otherwise normal on directand retroflexion views. Recommendation: - Discharge patient to home. - High fiber diet. - Continue present medications. - Await pathology results. - Repeat colonoscopy for surveillance based on pathology results. - Return to GI office PRN. us Jonas Gonzalez MD GI~PROCEDURE ORDERABLES Fin al Result * Tissue exam (05/30/2025 7:56 AM EDT) Final Diagnosis A. Large Intestine, Cecum, polyp x1: - Tubular adenoma. B. Colon, right colon polyp x1: - Tubular adenoma. 05/31/2025 11:27 AM EDT [facility] at 1127 EDT Gross Description A. Large Intestine, Cecum, polyp x1: Labeled colon, cecum polyp x 1 . Received in formalin, is an approximately 0.7 cm in greatest diameter soft to rubbery, hollis-pink, polypoid tissue fragment, inked green at the margin, admixed with fecal/food debris, which is wrapped in paper and submitted in toto in one cassette, one piece, multiple levels. B. Colon, right colon polyp x1: Labeled right colon . Received in formalin, is an approximately 0.4 cm in greatest diameter soft to rubbery, hollis-pink, polypoid tissue fragment, inked green at the margin, admixed with fecal/food debris, which is wrapped in paper and submitted in toto in one cassette, one piece, multiple levels. hs/DG 05/31/2025 11:27 AM EDT [facility] Disclaimer Unless otherwise specified, all tissue is 10% NB formalin fixed and paraffin embedded. 05/31/2025 11:27 AM EDT [facility] Tissue Colon structure / Unknown 05/30/2025 7:56 AM EDT 05/30/2025 8:54 AM EDT Tissue specimen (specimen) Colon structure / Unknown 05/30/2025 7:56 AM EDT 05/30/2025 8:54 AM EDT us Sp Garcia MD LAB PATHOLOGY ORDERABLES Billie l Result [facility] [address] [place] [address], [place] [phone] * DE INJECTION CARPAL TUNNEL THERAPEUTIC (05/07/2025 10:30 AM EDT) Aidan Carvalho MD - 05/07/2025 10:30 AM EDT Aidan Estrada MD 05/07/2025 1:01 PM Hand / UE Inj/Asp: L carpal tunnel for carpal tunnel syndrome Indications: diagnostic and pain Details: 25 G needle, volar approach Medications: 40 mg triamcinolone acetonide 40 mg/mL Outcome: tolerated well, no immediate complications Site was prepped in standard fashion using alcohol swab, sterile technique was used to perform the injection, the patient tolerated the procedure well and a band-aid dressing was applied Informed Consent: Site: Carpal tunnel Laterality: Left Relevant images/test results available and reviewed: yes Health status cleared: N/A Procedure/treatment, purpose, treatment alternatives, risks/potential complications and benefits explained: yes Risk/complications/benefits details: Risk/complications/benefits details: Risks and benefits of corticosteroid injection were discussed, including risk of pain, bleeding, infection, tissue attenuation, tendon rupture, changes in skin color, and injury to surrounding structures such as arteries, veins and nerves. We also discussed the patient may develop worsening pain for a few days before having improvement in their symptoms. Patient questions answered: yes Patient agrees, verbalizes understanding, and wants to proceed: yes Consent given by: Patient Informed consent discussion completed by Physician/VINCENT with patient: Verbal Pre-procedure timeout performed: yes Aidan Estrada MD IN CLINIC/BEDSIDE ORDERABLES Fin al Result * Lipid panel with reflex to direct LDL (04/06/2025 8:40 AM EDT) Cholesterol 154 0 - 200 mg/dL LAB CHEMISTRY METHOD 04/06/2025 5:58 PM EDT [facility] Triglycerides 52 0 - 150 mg/dL LAB CHEMISTRY METHOD 04/06/2025 5:58 PM EDT [facility] HDL 66 >=40 mg/dL LAB CHEMISTRY METHOD 04/06/2025 5:58 PM EDT [facility] LDL Calculated 78 0 - 100 mg/dL LAB CHEMISTRY METHOD 04/06/2025 5:58 PM EDT [facility] Comment:Estimated LDL Calcul ated using equation: Total cholesterol - HDL cholesterol - (Triglycerides/5) VLDL Cholesterol Tahir 10.4 mg/dL LAB CHEMISTRY METHOD 04/06/2025 5:58 PM EDT [facility] Non HDL Chol. (LDL+VLDL) 88 <145 mg/dL LAB CHEMISTRY METHOD 04/06/2025 5:58 PM EDT [facility] Chol/HDL Ratio 2.3 0.0 - 4.4 LAB CHEMISTRY METHOD 04/06/2025 5:58 PM EDT [facility] Blood Venous blood specimen / Unknown Venipuncture / Unknown 04/06/2025 8:40 AM EDT 04/06/2025 8:40 AM EDT Anselmo Flower MD LAB BLOOD ORDERABLES Billie l Result [facility] [address] [place] [address], * Comprehensive metabolic panel (04/06/2025 8:40 AM EDT) Sodium 140 133 - 145 mmol/L LAB CHEMISTRY METHOD 04/06/2025 5:58 PM [facility] Potassium 4.3 3.5 - 5.5 mmol/L LAB CHEMISTRY METHOD 04/06/2025 5:58 PM [facility] Chloride 106 96 - 110 mmol/L LAB CHEMISTRY METHOD 04/06/2025 5:58 PM [facility] CO2 28 21 - 32 mmol/L LAB CHEMISTRY METHOD 04/06/2025 5:58 PM [facility] Anion Gap 6 3 - 11 LAB CHEMISTRY METHOD 04/06/2025 5:58 PM T [facility] Glucose 78 70 - 100 mg/dL LAB CHEMISTRY METHOD 04/06/2025 5:58 PM [facility] BUN 18 5 - 25 mg/dL LAB CHEMISTRY METHOD 04/06/2025 5:58 PM [facility] Creatinine 0.88 0.70 - 1.30 mg/dL LAB CHEMISTRY METHOD 04/06/2025 5:58 PM [facility] eGFR 94 >=60 mL/min/1. 73m2 LAB CHEMISTRY METHOD 04/06/2025 5:58 PM [facility] Comment:Calculation based on the Chronic Kidney Disease Epidemiology Collaboration (CKD-EPI) equation refit without adjustment for race. BUN/Creatinine Ratio 20.5 LAB CHEMISTRY METHOD 04/06/2025 5:58 PM [facility] Calcium 8.8 8.5 - 10.5 mg/dL LAB CHEMISTRY METHOD 04/06/2025 5:58 PM [facility] AST (SGOT) 28 10 - 42 unit/L LAB CHEMISTRY METHOD 04/06/2025 5:58 PM [facility] ALT (SGPT) 29 10 - 60 unit/L LAB CHEMISTRY METHOD 04/06/2025 5:58 PM [facility] Alkaline Phosphatase 71 42 - 121 unit/L LAB CHEMISTRY METHOD 04/06/2025 5:58 PM [facility] Total Protein 7.0 6.0 - 8.0 g/dL LAB CHEMISTRY METHOD 04/06/2025 5:58 PM [facility] Albumin 4.0 3.2 - 5.0 g/dL LAB CHEMISTRY METHOD 04/06/2025 5:58 PM [facility] Total Bilirubin 0.7 0.0 - 1.4 mg/dL LAB CHEMISTRY METHOD 04/06/2025 5:58 PM [facility] Blood Venous blood specimen / Unknown Venipuncture / Unknown 04/06/2025 8:40 AM EDT 04/06/2025 8:40 AM EDT Anselmo Flower MD LAB BLOOD ORDERABLES Billie yevgeniy Result [facility] [address] [place] [address], * Hepatitis C Screening (08/20/2016) [facility] Hepatitis C Screening abstracted Historical Provider HEALTH MAINTENANCE Final Result from Last 3 Months or Most Recently Relevant to Health Maintenance Additional Health Concerns Active Problems Noted Date Diagnosed Date Autogenerated Problem 05/13/2025 Infection Onset Date Last Indicated Coronavirus 10/10/2024 10/10/2024 Insurance [employer] DOME[employer]ARE Care Teams [employer]ing Center Manager Relationship Specialty Start Date End Date Carin Flannery NP [address] [facility] [place] [address] PCP - General Primary Care 05/27/25
== END 2025-07-15 10:14 | disposition home or self-care (01) ==
LOC: HO.HPHYS 09:37
PROVIDERS: PCP Internal Medicine; Visit Provider Physician Assistant
DX: M16.12 Unilateral primary osteoarthritis, left hip (principal); M79.10 Myalgia, unspecified site; M75.122 Complete rotator cuff tear or rupture of left shoulder, not specified as traumatic; M54.2 Cervicalgia
CPT/HCPCS: 20552; 20610; 99214

== ENCOUNTER → 2025-07-15 09:37 | Outpatient (BNVA) | payer OTHER, SELFPAY | PROVIDERS: PCP Internal Medicine; Visit Provider Physician Assistant | DX: M16.12 Unilateral primary osteoarthritis, left hip (principal); M79.10 Myalgia, unspecified site; M75.122 Complete rotator cuff tear or rupture of left shoulder, not specified as traumatic; M54.2 Cervicalgia | CPT/HCPCS: 20552; 20610; J2003; J3301 ==